=== PATIENT | male | born 1965 | race Caucasian/White ===

== ENCOUNTER → 2024-11-23 12:18 | Outpatient (REF) | payer OTHER, SELFPAY | LOC: MRI 3T 12:18 | PROVIDERS: ATTENDING PHYSICIAN Pain Medicine Interventional Pain Medicine; FAMILY PHYSICIAN Family Medicine | DX: M54.16 Radiculopathy, lumbar region (principal) | CPT/HCPCS: 72148 ==

== ENCOUNTER 2024-12-16 15:48 | Observation (INO) | payer OTHER, SELFPAY ==
[2024-12-16] VITALS (16 sets, daily range): BP systolic 109–213; BP diastolic 75–102; BMI 27.3; BMI 27.8
[2024-12-16 11:16] LABS: Glucose - Point of Care 310 mg/dl (70-99)
--- NOTE | 2024-12-16 11:19 | ED.GENMED ---
ED Provider Triage
<Connie Ramey LEMON GROWER - Last Filed: 12/16/24 11:23>
-
Patient seen by provider in Triage?: Seen in Triage
Attestation: A medical screening examination has been initiated by a qualified medical provider. Based on the assessment performed at this time, it has been determined that an emergent medical condition may exist and the patient has been informed
that further medical evaluation and possible additional diagnostic testing may be needed.
HPI: 59-year-old male with history of IDDM, neuropathy across upper abdomen, states he has had nausea and vomiting for the past 5 days, diarrhea started yesterday, pain across upper abdomen is worse, different than his usual neuropathy pain.
GENERAL: Alert , in no apparent distress
EYE: No visual abnormalities.
NECK: Trachea midline
ENT: No visible abnormalities.
LUNGS: No acute respiratory distress
NEUROLOGICAL: Alert and oriented
SKIN: Skin intact. No visible changes.
MUSCULOSKELETAL: Moving extremities normally
PSYCH: Normal and appropriate interaction.
This is a medical evaluation conducted in person to initiate diagnostic evaluation and provide initial therapeutics. Please see further documentation by the treating clinician.
History of Present Illness
<Connie Ramey NP - Last Filed: 12/16/24 11:23>
General
Chief Complaint: Abdominal Symptoms
Time Seen by Provider: 12/16/24 13:16
<Rene Contreras MD - Last Filed: 12/16/24 19:42>
General
Source: patient
Exam Limitations: none
History of Present Illness
History of Present Illness:
Patient with history insulin-dependent diabetes, presents to ED secondary to 5-day history of persistent nausea, vomiting, and nonbloody diarrhea, along with worsening chronic neuropathic pain. Patient said his blood sugar has been significant
elevated due to his presenting symptoms. In addition patient has not been able to take his medications due to continual vomiting episodes. Denies dizziness. Denies back pain. Denies rash. Denies headache. Denies sore throat. Denies coughing.
Denies sick contact. Denies recent travel.
Past History
<Connie Ramey LEMON GROWER - Last Filed: 12/16/24 11:23>
Past History
ED Past Medical History: NIDDM
ED Past Surgical History: Orthopedic
Social History
Tobacco: Other
Drug: None
Personal:
Living: with family
Employment: Employed
Review of Systems
<Rene Contreras MD - Last Filed: 12/16/24 19:42>
Review of Systems
Allergies reviewed?: Yes
All Other Systems: ROS reviewed and negative except as documented in HPI and ROS
Constitutional: Reports no symptoms; Denies fever
EENT: Reports no symptoms
Respiratory: Reports no symptoms; Denies cough
Cardiac: Reports no symptoms
ABD/GI: Reports abdominal pain, nausea, vomiting and diarrhea
: Reports no symptoms
Musculoskeletal: Reports no symptoms
Skin: Reports no symptoms
Neurological: Reports weakness; Denies dizzy or headache
Phy Exam
<Rene Contreras MD - Last Filed: 12/16/24 19:42>
Physical Exam
Physical Exam:
Physical Exam
General: moderate painful distress, acutely ill. afebrile.
Head: nc/at. eomi
Neck: supple. no meningeal signs. normal posterior pharynx
Heart: s1/s2 regular rate and rhythm, no murmur. equal radial pulses.
Lungs: no acute respiratory distress. clear bilaterally
Abdomen: normal bowel sounds. mild diffuse tenderness to palpation.
Neuro: alert and oriented. no focal neurological deficits
Skin: no rash
Psychiatric: well kept. interactive and cooperative
Extremities: no edema. no calf tenderness.
Sepsis
<Connie Ramey LEMON GROWER - Last Filed: 12/16/24 11:23>
Sepsis Screen
Sepsis Screen: Possible Sepsis
Date: 12/16/24
Time: 11:19
<Rene Contreras MD - Last Filed: 12/16/24 19:42>
Sepsis Screening
Sepsis Assessment: Sepsis Ruled Out
Sepsis Screen
Sepsis Screen: Sepsis Ruled Out
Date: 12/16/24
Time: 19:42
Course
<Connie Ramey NP - Last Filed: 12/16/24 11:23>
Orders/Labs/Results
Orders:
Orders
12/16/24 11:18
Electrocardiogram (*1) Urgent
Reason for Study: Palpitations
EKG- Treatment ONCE
Norovirus by PCR Urgent
ZEB Source: Feces/Stool
Specimen Description:
Date Specimen was Collected: 12/16/24
Time Specimen was Collected: 11:18
STOOL [C difficile Antigen & Toxins] Urgent
ZEB Source: Feces/Stool
Specimen Description:
Date Specimen was Collected: 12/16/24
Time Specimen was Collected: 11:18
Stool Culture Urgent
ZEB Source: Feces/Stool
Specimen Description:
Date Specimen was Collected: 12/16/24
Time Specimen was Collected: 11:18
12/16/24 11:21
Ondansetron Orally Disint [Zofran Odt (Orally Disintegrating)] 4 mg PO NOW STA
12/16/24 11:22
Ondansetron Orally Disint [Zofran Odt (Orally Disintegrating)] 4 mg .ROUTE .STK-MED ONE
12/16/24 11:27
B-Hydroxybutyrate Urgent
COVID-19 Antigen Urgent
Source: Nasal Swab
Complete Blood Count/With Diff Urgent
Comprehensive Metabolic Panel Urgent
Lactic Acid Urgent
Lipase Urgent
Influenza A+B Rapid Molecular Urgent
ZEB Source: Nasal Swab
Specimen Description:
Date Specimen was Collected: 12/16/24
Time Specimen was Collected: 11:18
12/16/24 12:34
0.9% Sodium Chloride 1000 ml [Nss] 1,000 ml IV BOLUS
12/16/24 13:36
0.9% Sodium Chloride 1000 ml [Nss] 1,000 ml IV BOLUS
HYDROmorphone [Dilaudid] 1 mg IV NOW STA
Ketorolac [Toradol] 15 mg IV NOW STA
Ondansetron Injectable [Zofran] 4 mg IV NOW STA
Pantoprazole [Protonix IV] 40 mg IV NOW STA
12/16/24 13:47
Venous Blood Gas Urgent
%Oxygen/Room Air: 90
12/16/24 14:25
HYDROmorphone [Dilaudid] 0.5 mg IV NOW STA
12/16/24 14:59
Admit/Transfer Patient As Directed
Co-Sign Provider:
Level of Care: Observation services
Assign to:: Medical/Surgical
Physician / Group: Jose Mandujano
Diagnosis: influenza, persistent nausea and vomiting, hyponatremia
Reason for Hospitalization: influenza, persistent nausea and vomiting, hyponatremia
PRN Pain Medication Management As Directed
May give lesser potent ordered pain med per pt: Yes
preference::
Protocol:: Medication orders for pain may be administered in a
manner that supports deferring to patient preference
when the pt is:
- Requesting an ordered lesser potent pain medication.
Least to most potent pain medications are defined
as: acetaminophen < NSAID < tramadol < opioids
(morphine, oxycodone, hydromorphone).
- Requesting a lesser dose of the same medication IF
ORDERED.
- Requesting a less intrusive route of administration
if both routes are prescribed by the provider (PO <
IV).
12/16/24 15:00
Code Status As Directed
Resuscitation Status: Full Code
Clear Liquid
At Your Request: Full Participation
Does patient need a safe tray?: No
Reason for opting out of Teacher Vocal order writing: Provider Decision
12/16/24 17:33
0.9% Sodium Chloride 1000 ml [Nss] 1,000 ml IV 100 mls/hr
Acetaminophen [Tylenol] 650 mg PO Q4HPRN PRN
Dextrose 50%-Water [Dextrose 50% Syringe] 12.5 grams IV [id number] PRN
Glucagon [GlucaGen] 1 mg IM PRN PRN
Insulin Aspart Corrective Low [Novolog Flexpen-Low Resistance] See Protocol SC AC
Ondansetron Injectable [Zofran] 4 mg IV Q6HPRN PRN
Pregabalin [Lyrica] 100 mg PO MEALS
12/16/24 17:33
Activity As Directed
Activity Level: Ambulate
Bedside Glucose Monitoring As Directed
Frequency: AC&HS
Additional Instructions:: Change to q6h if pt on TPN, tube feeding or not eating
Vital Signs As Directed
Frequency: Per unit guidelines
Weight As Directed
Frequency: Once
DX Deep Vein Thrombosis Video Routine
12/16/24 17:59
Oxycodone [Roxicodone] 5 mg PO HSPRN PRN
12/16/24 20:00
Venlafaxine [Effexor] 25 mg PO BID
12/17/24 06:00
Basic Metabolic Panel IN AM
Complete Blood Count/No Diff IN AM
Glycohemoglobin (HgbA1c) IN AM
12/17/24 08:00
Ascorbic Acid [Vitamin C] 500 mg PO DAILY
FOLic ACID [Folvite] 0.4 mg PO DAILY
Oxycodone [Roxicodone] 10 mg PO BID@0800,1400
insulin glargine [Lantus Solostar U-100 Insulin] 26 unit SC DAILY
12/17/24 18:00
Enoxaparin Sodium [Lovenox] 40 mg SC QPM
Abnormal Lab Results
12/16/24 12/16/24 12/16/24
11:15 11:27 13:47
WBC 12.9 H 10^3/uL
(4.8-10.8)
Absolute Neuts (auto) 12.3 H 10^3/uL
(1.4-6.5)
Absolute Lymphs (auto) 0.3 L 10^3/uL
(1.2-3.4)
Neutrophils % 95.1 H %
(42.2-75.2)
Lymphocytes % 1.9 L %
(20.5-51.1)
VBG pH 7.52 H
(7.32-7.43)
VBG pCO2 29 L mmHg
(35-48)
VBG pO2 106 H mmHg
(30-50)
Sodium 129 L mmol/L
(135-145)
Chloride 95 L mmol/L
(98-107)
Carbon Dioxide 20 L mmol/L
(22-30)
BUN 25 H mg/dl
(9-20)
Creatinine 0.6 L mg/dL
(0.7-1.3)
Glucose 331 H mg/dl
(70-99)
B-Hydroxybutyrate 0.77 H mmol/L
(0.02-0.27)
POC Glucose 310 H mg/dl
(70-99)
12/16/24 11:27
12/16/24 11:27
Vital Signs
Initial and Last Documented VS:
Initial Vital Signs
Temp Pulse Resp BP Pulse Ox
98.4 F 93 25 155/102 98
12/16/24 11:14 12/16/24 11:14 12/16/24 11:14 12/16/24 11:14 12/16/24 11:14
Last Documented Vital Signs
Temp Pulse Resp BP Pulse Ox
98.5 F 82 20 158/77 98
12/16/24 17:44 12/16/24 18:22 12/16/24 18:22 12/16/24 18:22 12/16/24 18:22
<Rene Contreras MD - Last Filed: 12/16/24 19:42>
Orders/Labs/Results
Orders:
Orders
12/16/24 11:18
Electrocardiogram (*1) Urgent
Reason for Study: Palpitations
EKG- Treatment ONCE
Norovirus by PCR Urgent
ZEB Source: Feces/Stool
Specimen Description:
Date Specimen was Collected: 12/16/24
Time Specimen was Collected: 11:18
STOOL [C difficile Antigen & Toxins] Urgent
ZEB Source: Feces/Stool
Specimen Description:
Date Specimen was Collected: 12/16/24
Time Specimen was Collected: 11:18
Stool Culture Urgent
ZEB Source: Feces/Stool
Specimen Description:
Date Specimen was Collected: 12/16/24
Time Specimen was Collected: 11:18
12/16/24 11:21
Ondansetron Orally Disint [Zofran Odt (Orally Disintegrating)] 4 mg PO NOW STA
12/16/24 11:22
Ondansetron Orally Disint [Zofran Odt (Orally Disintegrating)] 4 mg .ROUTE .STK-MED ONE
12/16/24 11:27
B-Hydroxybutyrate Urgent
COVID-19 Antigen Urgent
Source: Nasal Swab
Complete Blood Count/With Diff Urgent
Comprehensive Metabolic Panel Urgent
Lactic Acid Urgent
Lipase Urgent
Influenza A+B Rapid Molecular Urgent
ZEB Source: Nasal Swab
Specimen Description:
Date Specimen was Collected: 12/16/24
Time Specimen was Collected: 11:18
12/16/24 12:34
0.9% Sodium Chloride 1000 ml [Nss] 1,000 ml IV BOLUS
12/16/24 13:36
0.9% Sodium Chloride 1000 ml [Nss] 1,000 ml IV BOLUS
HYDROmorphone [Dilaudid] 1 mg IV NOW STA
Ketorolac [Toradol] 15 mg IV NOW STA
Ondansetron Injectable [Zofran] 4 mg IV NOW STA
Pantoprazole [Protonix IV] 40 mg IV NOW STA
12/16/24 13:47
Venous Blood Gas Urgent
%Oxygen/Room Air: 90
12/16/24 14:25
HYDROmorphone [Dilaudid] 0.5 mg IV NOW STA
12/16/24 14:59
Admit/Transfer Patient As Directed
Co-Sign Provider:
Level of Care: Observation services
Assign to:: Medical/Surgical
Physician / Group: Jose Mandujano
Diagnosis: influenza, persistent nausea and vomiting, hyponatremia
Reason for Hospitalization: influenza, persistent nausea and vomiting, hyponatremia
PRN Pain Medication Management As Directed
May give lesser potent ordered pain med per pt: Yes
preference::
Protocol:: Medication orders for pain may be administered in a
manner that supports deferring to patient preference
when the pt is:
- Requesting an ordered lesser potent pain medication.
Least to most potent pain medications are defined
as: acetaminophen < NSAID < tramadol < opioids
(morphine, oxycodone, hydromorphone).
- Requesting a lesser dose of the same medication IF
ORDERED.
- Requesting a less intrusive route of administration
if both routes are prescribed by the provider (PO <
IV).
12/16/24 15:00
Code Status As Directed
Resuscitation Status: Full Code
Clear Liquid
At Your Request: Full Participation
Does patient need a safe tray?: No
Reason for opting out of Teacher Vocal order writing: Provider Decision
12/16/24 17:33
0.9% Sodium Chloride 1000 ml [Nss] 1,000 ml IV 100 mls/hr
Acetaminophen [Tylenol] 650 mg PO Q4HPRN PRN
Dextrose 50%-Water [Dextrose 50% Syringe] 12.5 grams IV [id number] PRN
Glucagon [GlucaGen] 1 mg IM PRN PRN
Insulin Aspart Corrective Low [Novolog Flexpen-Low Resistance] See Protocol SC AC
Ondansetron Injectable [Zofran] 4 mg IV Q6HPRN PRN
Pregabalin [Lyrica] 100 mg PO MEALS
12/16/24 17:33
Activity As Directed
Activity Level: Ambulate
Bedside Glucose Monitoring As Directed
Frequency: AC&HS
Additional Instructions:: Change to q6h if pt on TPN, tube feeding or not eating
Vital Signs As Directed
Frequency: Per unit guidelines
Weight As Directed
Frequency: Once
DX Deep Vein Thrombosis Video Routine
12/16/24 17:59
Oxycodone [Roxicodone] 5 mg PO HSPRN PRN
12/16/24 20:00
Venlafaxine [Effexor] 25 mg PO BID
12/17/24 06:00
Basic Metabolic Panel IN AM
Complete Blood Count/No Diff IN AM
Glycohemoglobin (HgbA1c) IN AM
12/17/24 08:00
Ascorbic Acid [Vitamin C] 500 mg PO DAILY
FOLic ACID [Folvite] 0.4 mg PO DAILY
Oxycodone [Roxicodone] 10 mg PO BID@0800,1400
insulin glargine [Lantus Solostar U-100 Insulin] 26 unit SC DAILY
12/17/24 18:00
Enoxaparin Sodium [Lovenox] 40 mg SC QPM
Abnormal Lab Results
12/16/24 12/16/24 12/16/24
11:15 11:27 13:47
WBC 12.9 H 10^3/uL
(4.8-10.8)
Absolute Neuts (auto) 12.3 H 10^3/uL
(1.4-6.5)
Absolute Lymphs (auto) 0.3 L 10^3/uL
(1.2-3.4)
Neutrophils % 95.1 H %
(42.2-75.2)
Lymphocytes % 1.9 L %
(20.5-51.1)
VBG pH 7.52 H
(7.32-7.43)
VBG pCO2 29 L mmHg
(35-48)
VBG pO2 106 H mmHg
(30-50)
Sodium 129 L mmol/L
(135-145)
Chloride 95 L mmol/L
(98-107)
Carbon Dioxide 20 L mmol/L
(22-30)
BUN 25 H mg/dl
(9-20)
Creatinine 0.6 L mg/dL
(0.7-1.3)
Glucose 331 H mg/dl
(70-99)
B-Hydroxybutyrate 0.77 H mmol/L
(0.02-0.27)
POC Glucose 310 H mg/dl
(70-99)
12/16/24 11:27
12/16/24 11:27
Vital Signs
Initial and Last Documented VS:
Initial Vital Signs
Temp Pulse Resp BP Pulse Ox
98.4 F 93 25 155/102 98
12/16/24 11:14 12/16/24 11:14 12/16/24 11:14 12/16/24 11:14 12/16/24 11:14
Last Documented Vital Signs
Temp Pulse Resp BP Pulse Ox
98.5 F 82 20 158/77 98
12/16/24 17:44 12/16/24 18:22 12/16/24 18:22 12/16/24 18:22 12/16/24 18:22
<Rene Contreras MD - Last Filed: 12/16/24 19:42>
MDM/Problems Addressed
MDM/Problems Addressed:
History and exam consistent with moderate dehydration, secondary to continual vomiting and diarrhea, with poor oral intake. Hyperglycemia noted without significant anion gap. Patient will be admitted for further evaluation and treatment.
<Rene Contreras MD - Last Filed: 12/16/24 19:42>
*Critical Care Note
Total Time (30-74mins, 75-104mins- exclusive of procedures): Not Applicable
ED Attending Note
<Connie Ramey LEMON GROWER - Last Filed: 12/16/24 11:23>
-
Portions of this chart may have been created with voice recognition software.� Occasional wrong word or��sound alike� substitutions may have occurred due to the inherent limitations of voice recognition software.
Discharge Plan
Departure
Patient Disposition: Admit
Date of Disposition: 12/16/24
Time of Disposition: 14:04
Admit to: Telemetry
Presentation/result/management discussed w/ accepting MD/DO: Hospitalist
Discharge Problem:
Influenza, Dehydration, Hyperglycemia
Interventions
Interventions:
*Risk Screen - Suicide Last Done: 12/16/24 11:14
*General Assessment Last Done: 12/16/24 12:40
*Neglect/Abuse Screening Last Done: 12/16/24 12:40
ED- Fall Risk Assessment Last Done: 12/16/24 12:40
*ED COVID-19 Vaccine History Last Done: 12/16/24 12:40
EN-Gmfzbc-Sayfavhhka Assessment Last Done: 12/16/24 12:40
ED- Neurological Assessment Last Done: 12/16/24 12:40
[2024-12-16] MEDS: ZOFRAN ODT (ORALLY DISINTEGRATING) 4 MG PO (11:26)
[2024-12-16 11:49] LABS: % Basophils 0.2 % (0-2); % Immature Granulocytes 0.3 % (0-0.5); % Lymphocytes 1.9 % (20.5-51.1); % Monocytes 2.5 % (1.7-9.3); % Neutrophils 95.1 % (42.2-75.2); Absolute Lymphocytes 0.3 10^3/uL (1.2-3.4); Absolute Monocytes 0.3 10^3/uL (0.1-0.6); Absolute Neutrophils 12.3 10^3/uL (1.4-6.5); Hematocrit 45.1 % (39.0-52.0); Hemoglobin 16.2 g/dL (13.0-18.0); Mean Corp Hgb Conc. 35.9 g/dL (33.0-37.0); Mean Corpuscular Hgb 30.4 pg (27.0-31.0); Mean Corpuscular Volume 84.6 fL (80.0-94.0); Mean Platelet Volume 9.7 fL (7.4-10.4); Nucleated Red Blood Cells % 0 % (-); Platelet Count 224 10^3/uL (130-400); Red Blood Cell Count 5.33 10^6/uL (4.70-6.10); Red Cell Dist. Width 12.6 % (11.5-14.5); White Blood Cell Count 12.9 10^3/uL (4.8-10.8)
[2024-12-16 12:01] LABS: COVID-19 Antigen Negative (Negative)
[2024-12-16 12:11] LABS: ALT (SGPT) 26 U/L (0-50); AST (SGOT) 24 U/L (17-59); Albumin 4.6 g/dl (3.5-5.0); Alkaline Phosphatase 65 U/L (38-126); Blood Urea Nitrogen 25 mg/dl (9-20); Calcium 8.4 mg/dl (8.4-10.2); Carbon Dioxide 20 mmol/L (22-30); Chloride 95 mmol/L (98-107); Glucose 331 mg/dl (70-99); Lipase 83 U/L (23-300); Potassium 3.9 mmol/L (3.5-5.1); Sodium 129 mmol/L (135-145); Total Bilirubin 1.1 mg/dl (0.2-1.3); Total Protein 6.9 g/dl (6.3-8.2); eGFR > 60.00
[2024-12-16 12:14] LABS: Lactic Acid 1.7 mmol/L (0.7-2.0)
[2024-12-16 12:17] LABS: B-Hydroxybutyrate 0.77 mmol/L (0.02-0.27)
[2024-12-16] MEDS: NSS 1000 IV ×3 (12:35→18:29)
--- NOTE | 2024-12-16 12:59 | EDRN ---
awaiting for a provider to come to see the pt, the pt is resting in stretcher in the lowest position, side rails up x2, call pugh within reach, HOB elevated, no s/s of distress, VS WNL, will continue to monitor the pt closely
--- NOTE | 2024-12-16 13:01 | EDRN ---
the pts blood pressure has been elevated, last BP 209/86 (120), the pt moves and states that he can't stay still because the BP cuff hurts and he wants to see a doctor, this RN apologized for the pts wait and notified the pt that a provider would
see the pt soon
--- NOTE | 2024-12-16 13:27 | EDRN ---
Dr. Contreras currently at the pts bedside
--- NOTE | 2024-12-16 13:31 | EDRN ---
the pts approached this RN at the nurses station and stated that her (the pt) wanted 2 more warm blankets, this RN provided 2 warm blankets for the pt and upon entering the pts room the pt stated that he wanted to go to the bathroom,
the pt was able to ambulate to the bathroom with no issues
[2024-12-16] MEDS: PROTONIX IV 40 MG IV (13:40)
[2024-12-16] MEDS: DILAUDID 1 MG IV (13:40)
[2024-12-16] MEDS: TORADOL 15 MG IV (13:40)
[2024-12-16] MEDS: ZOFRAN 4 MG IV (13:40)
[2024-12-16 13:54] LABS: Venous Blood Gas HCO3 23.7 mmol/L (22-27); Venous Blood Gas pCO2 29 mmHg (35-48); Venous Blood Gas pH 7.52 (7.32-7.43); Venous Blood Gas pO2 106 mmHg (30-50)
--- NOTE | 2024-12-16 14:07 | HPS.HSE ---
Family Physician
-
Family Physician: Lily Restrepo
Chief Complaint
-
nausea and vomiting
History of Present Illness
Patient is a 59-year-old male with past medical history significant for DM II who presented to [facility] for evaluation of persistent nausea and vomiting for 5 days recently associated with diarrhea. Patient also reports neuropathy in upper
abdomen and is having significantly worse discomfort and states does not feel the same as it normally does. Patient reports that a week ago on Sunday he noticed he felt more lethargic and was in bed by dinner, on that he started with
nausea and vomiting that has waxed and weaned since then. Then yesterday he reports the start of diarrhea. Patient has history of neuropathy the upper abdomen and lower ribs that causes constant discomfort, and with current symptoms has had
increased discomfort. Patient reports intermittent low grade fevers. Denies any cough, shortness of breath, chest pain, constipation or urinary symptoms.
Medical History
Past Medical History
Past Medical History: Reports Other
Additional Past Medical History:
DM II
neuropathy
Past Surgical History: Reports Other
Additional Past Surgical History:
LT T11-12 ILESI NO SED 09/13/23
LT T11-12 ILESI NO SED 10/09/23
bilateral knee arthroscopy
Social History
Tobacco: Non-smoker
Alcohol: None
Drug: Marijuana (uses medical grade topical marijuana for pain relief)
Personal:
Living: With Family
Employment: Employed
Family History
Family History: Not pertinent
Allergies / Home Medications
Allergies reflects when Allergies were last updated in [employer].
Home Medications with original date entered in [employer]
Allergy/Medication List:
Allergies
Allergy/AdvReac Type Severity Reaction Status Date / Time
No Known Drug Allergies Allergy NA Verified 12/16/24 11:19
seasonal allergies Allergy congestion Uncoded 12/16/24 11:19
Home Medications
Cbd Cream 1 applic topical BID rib and back pain 12/16/24
ascorbic acid (vitamin C) 500 mg tablet (Vitamin C) 500 mg PO DAILY 12/16/24
bisacodyl 5 mg tablet 15 mg PO DAILYPRN PRN constipation 12/16/24
folic acid 400 mcg tablet 0.4 mg PO DAILY 12/16/24
insulin glargine 100 unit/mL (3 mL) subcutaneous pen (Lantus Solostar U-100 Insulin) 26 unit SC DAILY 12/16/24
metformin 500 mg tablet 500 mg PO BID@0800,1700 12/16/24
oxycodone 10 mg tablet 5 mg PO HSPRN PRN severe pain 12/16/24
oxycodone 10 mg tablet 10 mg PO BID@0800,1400 12/16/24
pregabalin 50 mg capsule 100 mg PO MEALS 12/16/24
venlafaxine 25 mg tablet 25 mg PO BID 12/16/24
Review of Systems
-
History Source: Patient and Family
Constitutional: Reports Fever and Fatigue
EENT: Reports No Symptoms
Respiratory: Reports No Symptoms
Cardiac: Reports No Symptoms
Abdomen/GI: Reports Abdominal Pain, Nausea, Vomiting and Diarrhea
: Reports No Symptoms
Musculoskeletal: Reports No Symptoms
Skin: Reports No Symptoms
Neurological: Reports No Symptoms
Endocrine: Reports No Symptoms
Hematologic/Lymphatic: Reports No Symptoms
Psych: Reports No Symptoms
Physical Exam
Vital Signs
Vital Signs
Temp Pulse Resp BP Pulse Ox
98.9 F 78 16 194/87 97
12/16/24 12:40 12/16/24 13:49 12/16/24 13:49 12/16/24 13:49 12/16/24 13:49
Physical Exam
General: Well Developed, Well Nourished, Conversant, Pain and Poor Appetite
HEENT: NormoCephalic, Moist mucous membranes, Atraumatic, Nose Appears Normal and Ears Appear Normal
Respiratory: Clear and Non Labored Respirations
Cardiac: S1/S2 and Regular Rhythm; No Murmur, Rub or Gallop
Breast: Deferred by me
GI: Soft, Non Distended, Normal Bowel Sounds and Tender; No Organomegaly
Rectal: Deferred by Provider
Genito-urinary: Deferred by me
Musculoskeletal: No Clubbing, No Cyanosis and No Edema
Skin: Warm and IV/Catheter Site; No Rash
Neuro: Awake, Alert, AO x 3 and Nonfocal/grossly intact
Psych: Calm and Intact Judgment/Insight
Laboratory Results
-
12/16/24 11:27
12/16/24 11:27
Laboratory Results
Lactic Acid 1.7 mmol/L (0.7-2.0) 12/16/24 11:27
Total Bilirubin 1.1 mg/dl (0.2-1.3) 12/16/24 11:27
AST 24 U/L (17-59) 12/16/24 11:27
ALT 26 U/L (0-50) 12/16/24 11:27
Alkaline Phosphatase 65 U/L (38-126) 12/16/24 11:27
Lipase 83 U/L (23-300) 12/16/24 11:27
Data Reviewed
-
Medical Tests (Nuc Med, Echo, EKG etc): Report Reviewed by me (EKG: NORMAL SINUS RHYTHM SEPTAL INFARCT (CITED ON OR BEFORE 16-NOV-2023) ABNORMAL ECG)
Lab Data: Labs Reviewed by me (WBC 12.9, VBG PH 7.52, pCO2 29, pO2 106 HCO3 23.7, Na 129, glucose 331, Influenza B positive )
Impression/Plan
-
IMPRESSION/PLAN:
#persistent nausea and vomiting associated with diarrhea
Covid: negative
Influenza: B positive
WBC 12.9, Na 129, BUN 25, Creat 0.6
VBG: PH 7.52
pCO2 29
pO2 106
HCO3 23.7
O2 Sat 99.0
B-hydroxybutyrate 0.77
- admit to med/surg
- IVF
- supportive care
#hyponatremia
Na+ 129
- IVF
- monitor BMP
#DM II
- AccuCheck AC & HS
- continue Lantus
- hold metformin
- SSI
#neuropathy
- continue pregabalin and oxycodone
Code status: Full code
DVT Prophylaxis: Lovenox sq
--- NOTE | 2024-12-16 14:16 | EDRN ---
registration approached this RN and stated that the pt wanted to speak to this RN and stated that the pt was angry, this RN entered the pts room and asked the pt if he was alright, the pt then stated, 'No i am not i am in pain you didn't give me
anything for nausea or pain and i am uncomfortable', this RN explained to the pt that the pt got medications for nausea, acid reflux, and pain, and this RN talked the pt through deep breathing, the pt also stated to this RN, 'My lips are dry and i
want something to drink', this RN educated the pt that it is not best for him to drink right now due to the fact that the pt states that he keeps throwing up, this RN explained that another 1,000cc IVF Bolus was hung and is running, the pt verbally
stated that he understood however the pt stated, 'I still don't feel well', this RN apologized to the pt for not feeling well and stated that this RN and Dr. Contreras will take care of him, will continue to monitor the pt closely
--- NOTE | 2024-12-16 14:24 | EDRN ---
Hope Lockhart [employer] currently at the [facility] bedside
[2024-12-16] MEDS: DILAUDID 0.5 MG IV (14:34)
--- NOTE | 2024-12-16 14:38 | EDRN ---
per Hope Lockhart NP who is currently at the pts bedside the pt can have ice chips, this RN provided ice chips for the pt
--- NOTE | 2024-12-16 15:21 | EDRN ---
Dr. Mandjuano currently at the pts bedside speaking with the pt and the pts , medications reconciliation completed by Keisha the pharmacist
--- NOTE | 2024-12-16 15:29 | W.PN.UPDATE ---
Update Note
Progress Note Update
This is an addendum to the H&P written by Keyla Lockhart on 12/16/2024. Patient seen and examined independently with [employer].
59-year-old male past medical history of diabetes, abdominal neuropathy secondary to diabetes, presenting with 6 days of vomiting, worsening of chronic abdominal neuropathic pain and loose stools. He was feeling better but then felt worse this
morning. Not able to tolerate p.o. meds yesterday. No pulmonary symptoms.
Patient positive for influenza B.
Supportive care. Clear liquid diet. Continue p.o. medications can give IV Dilaudid if cannot tolerate.
Blood sugar elevated 330 secondary to not taking medications. Continue Lantus 26 units, hold metformin.
--- NOTE | 2024-12-16 17:34 | EDRN ---
admission orders processed, this RN called pharmacy to notify them
[2024-12-16 18:27] LABS: Glucose - Point of Care 191 mg/dl (70-99)
[2024-12-16] MEDS: LYRICA 100 MG PO (18:30)
[2024-12-16] MEDS: NOVOLOG FLEXPEN-LOW RESISTANCE 1 UNITS SC (18:31)
[2024-12-16] MEDS: ROXICODONE 5 MG PO (19:35)
[2024-12-16 21:19] LABS: Glucose - Point of Care 138 mg/dl (70-99)
[2024-12-16] MEDS: EFFEXOR 25 MG PO (21:25)
--- NOTE | 2024-12-16 23:51 | PTCARENOTE ---
pt admitted to room 320 from ED at approx 2100, pt aaox3, ambulated from stretcher to bed without difficulty. admission questions completed as documented. spouse at bedside. pt offers no complaints at this time. pt verbalizes understanding regarding
need for stool sample. call pugh within reach.
[2024-12-17] MEDS: NSS 1000 IV (04:32)
[2024-12-17 06:58] LABS: Hematocrit 38.9 % (39.0-52.0); Hemoglobin 13.7 g/dL (13.0-18.0); Mean Corp Hgb Conc. 35.2 g/dL (33.0-37.0); Mean Corpuscular Hgb 30.6 pg (27.0-31.0); Red Blood Cell Count 4.47 10^6/uL (4.70-6.10); Red Cell Dist. Width 12.8 % (11.5-14.5); White Blood Cell Count 5.3 10^3/uL (4.8-10.8)
[2024-12-17 06:59] LABS: Blood Urea Nitrogen 14 mg/dl (9-20); Calcium 7.9 mg/dl (8.4-10.2); Carbon Dioxide 27 mmol/L (22-30); Chloride 100 mmol/L (98-107); Estimated Creatinine Clearance > 125 ml/min; Glucose 145 mg/dl (70-99); Potassium 3.7 mmol/L (3.5-5.1); Sodium 135 mmol/L (135-145); eGFR > 60.00
[2024-12-17 07:32] VITALS: BP 170/85
[2024-12-17 07:43] LABS: Mean Platelet Volume 9.9 fL (7.4-10.4); Platelet Count 163 10^3/uL (130-400)
[2024-12-17 08:08] LABS: Glucose - Point of Care 162 mg/dl (70-99)
[2024-12-17] MEDS: LYRICA 100 MG PO ×2 (08:53→12:01)
[2024-12-17] MEDS: VITAMIN C 500 MG PO (08:54)
[2024-12-17] MEDS: ROXICODONE 10 MG PO (08:55)
[2024-12-17] MEDS: FOLVITE 0.4 MG PO (08:55)
[2024-12-17] MEDS: NOVOLOG FLEXPEN-LOW RESISTANCE 1 UNITS SC ×2 (08:55→12:01)
[2024-12-17] MEDS: LANTUS 0.26 UNITS SC (09:09)
[2024-12-17] MEDS: EFFEXOR 25 MG PO (09:10)
--- NOTE | 2024-12-17 10:20 | PTOTSP ---
chart reviewed, pt observed up in room without assistance. pt washing up at sink. no overt deficits noted regarding self care or ambulation. no acute OT needs identified, will sign off.
[2024-12-17 11:36] LABS: Glucose - Point of Care 186 mg/dl (70-99)
--- NOTE | 2024-12-17 12:18 | W.PN.HOSP.TC ---
Today's Communication/Plan
-
dc to home
Assessment / Plan
Assessment / Plan
Assessment:
Acute Gastroenteritis from Influenza B infection
- onset 5 days ago, out of window for tamiflu
- supportive care, IVF, pain control, antiemetics
- advanced diet to regulars, if tolerates, can dc home with PCP f/u
Acute hyponatremia resolved with IVF
IDDM with neuropathy
- continue Lantus/Metformin, diabetic diet
- continue home pain regimen
DVT ppx: Lovenox
Code: Full
More than 30 minutes spent in discharge including
Final examination of the patient
Summarizing hospital stay
Instructions for continuing care to all relevant caregivers
Preparation of discharge records, prescriptions, and referral forms
Total time spent (in minutes): 41
Anticipated Discharge: Today
Subjective/Interval History
-
Date of Service: December 17, 2024
up and ambulating in room
tolerated liquid diet
Objective Data
-
Labs:
Laboratory Results
12/17/24
06:13
WBC 5.3
Hgb 13.7
Hct 38.9 L
Plt Count 163 D
Sodium 135
Potassium 3.7
Chloride 100
Carbon Dioxide 27
BUN 14
Creatinine 0.7
Glucose 145 H
Calcium 7.9 L
Vital Signs:
Vital Signs
Temp Pulse Resp BP Pulse Ox
98.9 F 68 16 170/85 96
12/17/24 07:32 12/17/24 07:32 12/17/24 07:32 12/17/24 07:32 12/17/24 09:11
I&O
12/16/24 12/17/24 12/18/24
06:59 06:59 06:59
Intake Total [id number]
Balance 1859
Physical Exam
-
General: No Apparent Distress
HEENT: Normocephalic and Atraumatic
Respiratory: Negative Wheezes
Cardiac: Regular Rhythm and S1/S2
GI: Soft and Nontender
Musculoskeletal: No Edema
Neuro: AO x 3
Hematologic / Lymphatic: No Lymphadenopathy
Psych: Calm
Data Reviewed
-
Total Time Spent with Patient (in minutes): 41
Labs: Labs Reviewed by me
--- NOTE | 2024-12-17 12:35 | W.DS.TRANS ---
DC Summary - [employer]
-
Discharge Instructions:
Discharge Diagnosis/Procedures dehydration from gastroenteritis from influenza
B
Diet Diabetic, Carb Controlled
Activity As tolerated
Instructions:
Stand-Alone Forms:
Changes to Home Medications: No
Discharge Medications:
DC Medications w/original date entered in [facility]
Cbd Cream 1 applic topical BID rib and back pain 12/16/24
ascorbic acid (vitamin C) 500 mg tablet (Vitamin C) 500 mg PO DAILY Supplement 12/16/24
bisacodyl 5 mg tablet 15 mg PO DAILYPRN PRN constipation 12/16/24
folic acid 400 mcg tablet 0.4 mg PO DAILY Supplement 12/16/24
insulin glargine 100 unit/mL (3 mL) subcutaneous pen (Lantus Solostar U-100 Insulin) 26 unit SC DAILY Diabetes 12/16/24
metformin 500 mg tablet 500 mg PO BID@0800,1700 Diabetes 12/16/24
oxycodone 10 mg tablet 5 mg PO HSPRN PRN severe pain 12/16/24
oxycodone 10 mg tablet 10 mg PO BID@0800,1400 Pain 12/16/24
pregabalin 50 mg capsule 100 mg PO MEALS Pain 12/16/24
venlafaxine 25 mg tablet 25 mg PO BID pain/mental health 12/16/24
Home Medication Changes
Pending Results: No
Total time spent discharging patient (in min): 41
--- NOTE | 2024-12-17 12:37 | PTOTSP ---
Patient motivated to mobilize in room and as well as perform standing stretches that he normally completes at home.
Patient demonstrates functional mobility at independent level and does not demonstrate further need for skilled therapy at this time.
Will discharge.
If needs change, please re-consult.
[2024-12-17 13:16] VITALS: BP 154/86
== END 2024-12-17 14:04 | disposition home or self-care (01) ==
LOC: 3 WEST ACU 15:48
PROVIDERS: Emergency Medicine; Nurse Practitioner Family; ADMITTING PHYSICIAN Hospitalist; ATTENDING PHYSICIAN Internal Medicine; EMERGENCY PHYSICIAN Emergency Medicine; FAMILY PHYSICIAN Family Medicine
DX: J10.1 Influenza due to other identified influenza virus with other respiratory manifestations (principal); K52.9 Noninfective gastroenteritis and colitis, unspecified; E86.0 Dehydration; R11.2 Nausea with vomiting, unspecified; R00.2 Palpitations; E11.65 Type 2 diabetes mellitus with hyperglycemia; E11.40 Type 2 diabetes mellitus with diabetic neuropathy, unspecified; R10.10 Upper abdominal pain, unspecified; R94.31 Abnormal electrocardiogram [ECG] [EKG]; E87.1 Hypo-osmolality and hyponatremia; Z11.52 Encounter for screening for COVID-19; F12.90 Cannabis use, unspecified, uncomplicated; Z79.4 Long term (current) use of insulin; Z79.84 Long term (current) use of oral hypoglycemic drugs; Z79.891 Long term (current) use of opiate analgesic
CPT/HCPCS: 80048; 80053; 82010; 82805; 82962; 83036; 83605; 83690; 85025; 85027; 87502; 87811; 93005; 96361; 96374; 96375; 97162; 97530; 99285; G0378